=== PATIENT | female | born 1995 | race Caucasian/White ===

== ENCOUNTER 2017-02-14 14:12 | Emergency (ER) | payer BC ==
[~2017-02-14] VITALS: Ht 165.1 cm; Wt 85.0 kg
[2017-02-14 14:14] VITALS: BP 136/88; PULSE 87; RESP 18; TEMP 99.1; O2SAT 99
--- NOTE | 2017-02-14 14:23 | PD ---
Physical Exam Time Seen by Provider: 14:23 Narrative 21 y/o female here with l sided headache, numbness L side of body which started today. She also had a nosebleed but that resolved. Vital signs reviewed. Seen at triage desk. Awaiting bed placement. Data Data Last Documented VS Vital Signs Date Time Temp Pulse Resp B/P (MAP) Pulse Ox O2 Delivery O2 Flow Rate FiO2 02/14/17 14:14 99.1 87 18 136/88 (104) 99 Room Air [facility] Medical Record Reviewed: Yes Supervised Visit with JAMAR: Noe Narvaez Feb 14, 2017 14:23
[2017-02-14] MEDS ORDERED: SERT-132 PO (14:43)
[2017-02-14] MEDS ORDERED: NORE1CAP PO (14:43)
[2017-02-14] MEDS ORDERED: SODIUM CHLOR 0.9% 1000 ML INJ 1,000 ML IV ONE (14:51)
[2017-02-14] MEDS ORDERED: SODIUM CHLORIDE 0.9% FLUSH 10 ML FLUSH IVF PRN (15:00)
--- NOTE | 2017-02-14 15:03 | PD ---
HPI Chief Complaint: Neuro Symptoms/ Deficits Time Seen by Provider: 14:51 Travel History International Travel<30 days: No Contact w/Intl Traveler<30days: No Traveled to known affect area: No History of Present Illness HPI The patient is a 21-year-old female who presents to the emergency department for left-sided numbness. The patient states she's had intermittent headaches the posterior left aspect of her head for the last week. The patient was at work earlier today, approximately one to 2 hours prior to arrival when she developed left hand weakness. The patient then felt like her left leg, left arm , and left face were numb. The patient also states she had sensitivity to the teeth on the left side of the body. The patient states that the numbness of the left leg and left face resolved, she still feels like she has mild numbness to the left hand. She denied any dysarthria. She denied any outright weakness , however, her left hand felt unusual, therefore, she was picking up a cup with her right hand. She denies any previous history of CVA or TIA. She denies a personal history of migraines, but does have a strong family history of migraines. She denies any history of seizure disorders. She does note most of her symptoms have resolved except for the numbness of the left hand. The patient does take Zoloft and oral contraceptives, last menstrual cycle was one week ago, she denies . She denies any personal history of hypertension , hyperlipidemia, diabetes, or tobacco use. PFSH Past Medical History Asthma: Yes Depression: Yes Diminished Hearing: No Psychiatric: Yes Respiratory: Yes Tetanus Vaccination: > 5 Years Influenza Vaccination: No ?: Not LMP: 02/10/17 Past Surgical History Eye Surgery: Yes (as an ) Social History Alcohol Use: No Tobacco Use: No Substance Use: No Allergies-Medications (Allergen,Severity, Reaction): Coded Allergies: Sulfa (Sulfonamide Antibiotics) (Verified Allergy, Intermediate, Itching, 02/14/17) Reported Meds & Prescriptions Reported Meds & Active Scripts Active Reported Taytulla (Norethindrone-Ethinyl Estradiol-Fe) 1-20 mg-Mcg Cap 1 Tab PO DAILY Sertraline (Sertraline HCl) 50 Mg Tab 50 Mg PO DAILY Review of Systems Except as stated in HPI: all other systems reviewed are Neg General / Constitutional: No: Fever Eyes: No: Blurred Vision, Visual changes HENT: Positive: Headaches, No: Neck Pain Cardiovascular: No: Chest Pain or Discomfort Respiratory: No: Shortness of Breath Gastrointestinal: No: Nausea, Vomiting, Abdominal Pain Musculoskeletal: No: Weakness Neurologic: Positive: Headache, Paresthesia, Sensory Disturbance, No: Dizziness , Change in Mentation, Slurred Speech Physical Exam Narrative GENERAL: Awake, alert, pleasant 21-year-old female who appears her stated age and is in no acute respiratory distress. SKIN: Focused skin assessment warm/dry. HEAD: Atraumatic. Normocephalic. EYES: Pupils equal and round. No scleral icterus. No injection or drainage. ENT: No nasal bleeding or discharge. Mucous membranes pink and moist. NECK: Trachea midline. No JVD. CARDIOVASCULAR: Regular rate and rhythm. No murmur appreciated. RESPIRATORY: No accessory muscle use. Clear to auscultation. Breath sounds equal bilaterally. GASTROINTESTINAL: Abdomen soft, non-tender, nondistended. MUSCULOSKELETAL: No obvious deformities. No clubbing. No cyanosis. No edema. NEUROLOGICAL: Awake and alert. No obvious cranial nerve deficits. Motor grossly within normal limits. Normal speech. Patient is able to see fingers at a distance of 2 feet without difficulty. She was equal round reactive to light at 4 mm, patient is wearing contacts, EOMs are intact. Smile is symmetric. Tongue is midline. There is no drift of the arms or legs. Sensation is intact on the arms, legs, and face bilaterally. Finger to nose is normal. Heel-to- blanchard is normal. NIHSS 0. PSYCHIATRIC: Appropriate mood and affect; insight and judgment normal. Data Data Last Documented VS Vital Signs Date Time Temp Pulse Resp B/P (MAP) Pulse Ox O2 Delivery O2 Flow Rate FiO2 02/14/17 15:55 84 17 134/85 (101) 99 Room Air 02/14/17 14:14 99.1 Orders Orders Complete Blood Count With Diff (02/14/17 14:51) Comprehensive Metabolic Panel (02/14/17 14:51) Westergren Sedimentation Rate (02/14/17 14:51) C-Reactive Protein (Crp) (02/14/17 14:51) Ct Brain W/O Iv Contrast(Rout) (02/14/17 14:51) Ecg Monitoring (02/14/17 14:51) Iv Access Insert/Monitor (02/14/17 14:51) Oximetry (02/14/17 14:51) Sodium Chloride 0.9% Flush (Ns Flush) (02/14/17 15:00) Sodium Chlor 0.9% 1000 Ml Inj (Ns 1000 M (02/14/17 14:51) Mri Brain W&W/O Contrast (02/14/17 ) Electrocardiogram (02/14/17 ) Labs Laboratory Tests Test 02/14/17 15:00 White Blood Count 5.8 TH/MM3 Red Blood Count 4.39 MIL/MM3 Hemoglobin 12.4 GM/DL Hematocrit 38.1 % Mean Corpuscular Volume 86.7 FL Mean Corpuscular Hemoglobin 28.3 PG Mean Corpuscular Hemoglobin Concent 32.6 % Red Cell Distribution Width 14.1 % Platelet Count 327 TH/MM3 Mean Platelet Volume 8.2 FL Neutrophils (%) (Auto) 64.1 % Lymphocytes (%) (Auto) 28.8 % Monocytes (%) (Auto) 6.1 % Eosinophils (%) (Auto) 0.4 % Basophils (%) (Auto) 0.6 % Neutrophils # (Auto) 3.7 TH/MM3 Lymphocytes # (Auto) 1.7 TH/MM3 Monocytes # (Auto) 0.4 TH/MM3 Eosinophils # (Auto) 0.0 TH/MM3 Basophils # (Auto) 0.0 TH/MM3 CBC Comment DIFF FINAL Differential Comment Erythrocyte Sedimentation Rate 22 mm/hr Blood Urea Nitrogen 9 MG/DL Creatinine 0.66 MG/DL Random Glucose 85 MG/DL Total Protein 8.1 GM/DL Albumin 3.6 GM/DL Calcium Level 9.0 MG/DL Alkaline Phosphatase 42 U/L Aspartate Amino Transf (AST/SGOT) 12 U/L Alanine Aminotransferase (ALT/SGPT) 16 U/L Total Bilirubin 0.2 MG/DL Sodium Level 136 MEQ/L Potassium Level 3.7 MEQ/L Chloride Level 103 MEQ/L Carbon Dioxide Level 23.4 MEQ/L Anion Gap 10 MEQ/L Estimat Glomerular Filtration Rate 111 ML/MIN C-Reactive Protein 0.68 MG/DL [facility] Medical Decision Making Medical Screen Exam Complete: Yes Emergency Medical Condition: Yes Medical Record Reviewed: Yes Interpretation(s) EKG reveals normal sinus rhythm sinus rhythm with sinus arrhythmia. Laboratory Tests Test 9/27/17 15:00 White Blood Count 5.8 TH/MM3 Red Blood Count 4.39 MIL/MM3 Hemoglobin 12.4 GM/DL Hematocrit 38.1 % Mean Corpuscular Volume 86.7 FL Mean Corpuscular Hemoglobin 28.3 PG Mean Corpuscular Hemoglobin Concent 32.6 % Red Cell Distribution Width 14.1 % Platelet Count 327 TH/MM3 Mean Platelet Volume 8.2 FL Neutrophils (%) (Auto) 64.1 % Lymphocytes (%) (Auto) 28.8 % Monocytes (%) (Auto) 6.1 % Eosinophils (%) (Auto) 0.4 % Basophils (%) (Auto) 0.6 % Neutrophils # (Auto) 3.7 TH/MM3 Lymphocytes # (Auto) 1.7 TH/MM3 Monocytes # (Auto) 0.4 TH/MM3 Eosinophils # (Auto) 0.0 TH/MM3 Basophils # (Auto) 0.0 TH/MM3 CBC Comment DIFF FINAL Differential Comment Erythrocyte Sedimentation Rate 22 mm/hr Blood Urea Nitrogen 9 MG/DL Creatinine 0.66 MG/DL Random Glucose 85 MG/DL Total Protein 8.1 GM/DL Albumin 3.6 GM/DL Calcium Level 9.0 MG/DL Alkaline Phosphatase 42 U/L Aspartate Amino Transf (AST/SGOT) 12 U/L Alanine Aminotransferase (ALT/SGPT) 16 U/L Total Bilirubin 0.2 MG/DL Sodium Level 136 MEQ/L Potassium Level 3.7 MEQ/L Chloride Level 103 MEQ/L Carbon Dioxide Level 23.4 MEQ/L Anion Gap 10 MEQ/L Estimat Glomerular Filtration Rate 111 ML/MIN C-Reactive Protein 0.68 MG/DL Differential Diagnosis Differential diagnosis includes CVA, TIA, PFO, complicated migraine, partial seizure, tumor. Narrative Course IV was established, labs are drawn and sent, and the patient was placed on cardiac telemetry monitoring and continuous pulse oximetry monitoring. EKG was ordered and interpreted. Stat CT of the brain was obtained. MRI the brain with and without contrast was ordered to evaluate for tumor/CVA/cavernous sinus thrombosis. Laboratory evaluation is unremarkable. The patient was signed out to the oncoming physician at 5 PM. Diagnosis Primary Impression: Arm paresthesia, left Condition: Stable Shilo Henson MD Feb 14, 2017 15:03
[2017-02-14 15:06] VITALS: O2SAT 97
[2017-02-14 15:54] LABS: AUTOMATED NEUTROPHIL # 3.7 TH/MM3 (1.8-7.7); BASOPHIL % 0.6 % (0.0-2.0); EOSINOPHIL % 0.4 % (0.0-4.0); HEMATOCRIT 38.1 % (35.0-46.0); HEMO FLAGS DIFF FINAL; LYMPH % 28.8 % (9.0-44.0); LYMPHOCYTE # 1.7 TH/MM3 (1.0-4.8); MEAN CELL VOLUME 86.7 FL (80.0-100.0); MEAN CORPUSCULAR HEMOGLOBIN 28.3 PG (27.0-34.0); MEAN CORPUSCULAR HGB CONC 32.6 % (32.0-36.0); MONO % 6.1 % (0.0-8.0); NEUT % 64.1 % (16.0-70.0); PLATELET COUNT 327 TH/MM3 (150-450); RED BLOOD COUNT 4.39 MIL/MM3 (4.00-5.30); RED CELL DISTRIBUTION WIDTH 14.1 % (11.6-17.2); WHITE BLOOD COUNT 5.8 TH/MM3 (4.0-11.0)
[2017-02-14 15:55] VITALS: BP 134/85; PULSE 84; RESP 17; O2SAT 99
[2017-02-14 16:14] LABS: ANION GAP 10 MEQ/L (5-15); AST (GOT) 12 U/L (15-37); BICARBONATE 23.4 MEQ/L (21.0-32.0); BLOOD UREA NITROGEN 9 MG/DL (7-18); CHLORIDE 103 MEQ/L (98-107); GLOMERULAR FILTRATION RATE 111 ML/MIN (>89); POTASSIUM 3.7 MEQ/L (3.5-5.1); SODIUM (NA) 136 MEQ/L (136-145)
[2017-02-14 16:15] LABS: ALT (GPT) 16 U/L (10-53)
[2017-02-14 16:18] LABS: ALKALINE PHOSPHATASE 42 U/L (45-117); TOTAL BILIRUBIN ADULT 0.2 MG/DL (0.2-1.0)
[2017-02-14] MEDS ORDERED: GADODIAMIDE PF 287 MG/ML 5 ML VIAL (for RAD MRI) IVCONTRAST ONE (16:49)
--- NOTE | 2017-02-14 17:06 | RADRPT ---
EXAM DATE/TIME: 02/14/2017 16:33 [facility] COMPARISON: No previous studies available for comparison. INDICATIONS : Cephalgia. Left sided weakness. CONTRAST: 15 cc Omniscan (gadodiamide) IV MEDICAL HISTORY : None. SURGICAL HISTORY : Eye surgery as a child. ENCOUNTER: Subsequent ACUITY: 1 day PAIN SCORE: 3/10 LOCATION: head. TECHNIQUE: Multiplanar, multisequence MRI of the brain was performed both prior to and following the administrat ion of paramagnetic contrast. FINDINGS: CEREBRUM: The ventricles are normal for age. No evidence of midline shift, mass lesion, hemorrhage or acute in farction. No extraaxial fluid collections are seen. The pituitary gland and suprasellar cistern are normal in configuration. WHITE MATTER: No significant signal abnormalities are seen in the white matter. POSTERIOR FOSSA: The cerebellum and brainstem are intact. The 4th ventricle is midline. The cerebellopontine angle is unremarkable. The cerebellar tonsils are normal in position. DIFFUSION IMAGING: No focal areas of restricted diffusion are seen. No evidence of acute infarction. EXTRACRANIAL: The visualized portions of the orbits and paranasal sinuses are unremarkable. POST-CONTRAST: No abnormal areas of parenchymal or dural enhancement. No evidence of blood-brain barrier breakdown. CONCLUSION: 1. Normal examination. Tom Chapman MD on February 14, 2017 at 17:02 Board Certified Radiologist. This report was verified electronically.
[2017-02-14 17:08] VITALS: BP 126/73; PULSE 71; RESP 15; O2SAT 100
--- NOTE | 2017-02-14 17:16 | RADRPT ---
EXAM DATE/TIME: 02/14/2017 16:58 [facility] COMPARISON: No previous studies available for comparison. INDICATIONS : Left sided headaches with nose bleed. RADIATION DOSE: 32.03 CTDIvol (mGy) MEDICAL HISTORY : None SURGICAL HISTORY : None. ENCOUNTER: Initial ACUITY: 1 day PAIN SCALE: 7/10 LOCATION: Left cranial TECHNIQUE: Multiple contiguous axial images were obtained of the head. Using automated exposure control and adj ustment of the mA and/or kV according to patient size, radiation dose was kept as low as reasonably a chievable to obtain optimal diagnostic quality images. DICOM format image data is available electro nically for review and comparison. FINDINGS: CEREBRUM: The ventricles are normal for age. No evidence of midline shift, mass lesion, hemorrhage or acute in farction. No extra-axial fluid collections are seen. POSTERIOR FOSSA: The cerebellum and brainstem are intact. The 4th ventricle is midline. The cerebellopontine angle i s unremarkable. EXTRACRANIAL: The visualized portion of the orbits is intact. SKULL: The calvaria is intact. No evidence of skull fracture. CONCLUSION: Negative for acute process. Pedro Chapman MD FACR on February 14, 2017 at 17:14 Board Certified Radiologist. This report was verified electronically.
--- NOTE | 2017-02-14 17:35 | PD ---
Data Data Last Documented VS Vital Signs Date Time Temp Pulse Resp B/P (MAP) Pulse Ox O2 Delivery O2 Flow Rate FiO2 02/14/17 17:08 71 15 126/73 (90) 100 Room Air 02/14/17 14:14 99.1 Orders Orders Complete Blood Count With Diff (02/14/17 14:51) Comprehensive Metabolic Panel (02/14/17 14:51) Westergren Sedimentation Rate (02/14/17 14:51) C-Reactive Protein (Crp) (02/14/17 14:51) Ct Brain W/O Iv Contrast(Rout) (02/14/17 14:51) Ecg Monitoring (02/14/17 14:51) Iv Access Insert/Monitor (02/14/17 14:51) Oximetry (02/14/17 14:51) Sodium Chloride 0.9% Flush (Ns Flush) (02/14/17 15:00) Sodium Chlor 0.9% 1000 Ml Inj (Ns 1000 M (02/14/17 14:51) Mri Brain W&W/O Contrast (02/14/17 ) Electrocardiogram (02/14/17 ) Gadodiamide Pf Inj (Omniscan Pf Inj) (02/14/17 16:49) Labs Laboratory Tests Test 02/14/17 15:00 White Blood Count 5.8 TH/MM3 Red Blood Count 4.39 MIL/MM3 Hemoglobin 12.4 GM/DL Hematocrit 38.1 % Mean Corpuscular Volume 86.7 FL Mean Corpuscular Hemoglobin 28.3 PG Mean Corpuscular Hemoglobin Concent 32.6 % Red Cell Distribution Width 14.1 % Platelet Count 327 TH/MM3 Mean Platelet Volume 8.2 FL Neutrophils (%) (Auto) 64.1 % Lymphocytes (%) (Auto) 28.8 % Monocytes (%) (Auto) 6.1 % Eosinophils (%) (Auto) 0.4 % Basophils (%) (Auto) 0.6 % Neutrophils # (Auto) 3.7 TH/MM3 Lymphocytes # (Auto) 1.7 TH/MM3 Monocytes # (Auto) 0.4 TH/MM3 Eosinophils # (Auto) 0.0 TH/MM3 Basophils # (Auto) 0.0 TH/MM3 CBC Comment DIFF FINAL Differential Comment Erythrocyte Sedimentation Rate 22 mm/hr Blood Urea Nitrogen 9 MG/DL Creatinine 0.66 MG/DL Random Glucose 85 MG/DL Total Protein 8.1 GM/DL Albumin 3.6 GM/DL Calcium Level 9.0 MG/DL Alkaline Phosphatase 42 U/L Aspartate Amino Transf (AST/SGOT) 12 U/L Alanine Aminotransferase (ALT/SGPT) 16 U/L Total Bilirubin 0.2 MG/DL Sodium Level 136 MEQ/L Potassium Level 3.7 MEQ/L Chloride Level 103 MEQ/L Carbon Dioxide Level 23.4 MEQ/L Anion Gap 10 MEQ/L Estimat Glomerular Filtration Rate 111 ML/MIN C-Reactive Protein 0.68 MG/DL [facility] Supervised Visit with JAMAR: No Narrative Course The patient was initially evaluated by the previous provider and sent out to me at the beginning of my shift pending CT head and MRI brain. See his note for further details. Briefly this a 21-year-old female who presented to the emergency department for left-sided numbness and intermittent left-sided headache. The numbness occurred this morning while at work meeting and lasted for about an hour. She had left facial numbness left arm numbness and left leg numbness. She did not note any weakness. No history of CVA or TIA. She is on control. On physical exam the patient is awake and alert with no focal deficits. At time of my assessment the patient reports that her symptoms have completely resolved except for a slight left-sided headache. I offered her Tylenol, however she declined. Vital signs reviewed and are within normal limits. CBC is unremarkable. CMP is unremarkable. CT head read as negative for an acute process. MRI brain read as normal exam. Patient's symptoms seem consistent with a complex migraine. She has a strong family history of migraines. The patient has remained a symptomatic while in the emergency department aside from a slight left-sided headache. At this point she is stable for discharge home with outpatient follow-up with her primary care physician this week. I will also give her the name of the neurologist content development specialist with whom to follow-up with this week. She was provided a copy of both her CT and MRI brain reports. She was informed on when to return to the emergency department. She verbalizes understanding and agreement with plan. Diagnosis Primary Impression: Arm paresthesia, left Referrals: Kelly Morris MD 3 days Neurologist Primary Care Physician 3 days Additional Instruction: Follow-up with your primary care physician this week. Follow-up with neurologist Dr. Morris this week. Return to the emergency department for worsening symptoms or any other concerns. Disposition: 01 DISCHARGE HOME Condition: Stable Huy Marsh MD Feb 14, 2017 17:35
--- NOTE | 2017-02-15 07:56 | EKG ---
Date Performed: 02/14/2017 Time Performed: 15:22:03 PTAGE: 21 years EKG: Sinus rhythm WITH SINUS ARRHYTHMIA NORMAL ECG NO PREVIOUS TRACING DOCTOR: Janice Maher Interpretating Date/Time 02/15/2017 07:54:47
== END 2017-02-14 17:58 | disposition home or self-care (01) ==
LOC: NEPD 14:12
DX: R20.9 Unspecified disturbances of skin sensation (principal); R51 Headache; M62.81 Muscle weakness (generalized); R04.0 Epistaxis; I49.8 Other specified cardiac arrhythmias; J45.909 Unspecified asthma, uncomplicated; F32.9 Major depressive disorder, single episode, unspecified; Z79.899 Other long term (current) drug therapy; Z88.2 Allergy status to sulfonamides
CPT/HCPCS: 70450; 70553; 80053; 85025; 85652; 86140; 93005; 96360; 99285; A9579; J7030